=== PATIENT | male | born 1995 | race Caucasian/White ===

== ENCOUNTER 2023-01-17 09:13 | Inpatient (IN) | payer OTHER, MEDICAID, SELFPAY ==
[2023-01-17] VITALS (10 sets, daily range): BP systolic 125–142; BP diastolic 66–97; PULSE 71–110; RESP 14–23; TEMP 36.4–37.8; O2SAT 97–100; BMI 25.7
--- NOTE | ~2023-01-17 | MR_ITS ---
MRI of the abdomen: Clinical indication: Left renal lesion, pancreatitis. Technique: Coronal SSFSE ARC, WATER:coronal LAVA-FLEX, Coronal 2D FIESTA FatSat, Axial SSFSE BH ARC, Axial 3D DualEcho BH, Axial SSFSE-IR, Axial DWI b=500, Axial 2D FIESTA FatSat, pre and dynamic postco ntrast Axial LAVA ARC, postcontrast Coronal In and Opposed phase LAVA FLEX. Following intravenous adm inistration of 19 cc MultiHance gadolinium, T1-weighted fat-sat imaging was performed in the axial an d coronal planes. COMPARISON: CT scan dated 01/17/2023 Findings: Gallbladder is unremarkable. The common bile duct is normal in course and caliber. No filli ng defects are seen within the CBD. No evidence of intrahepatic biliary ductal dilatation. The pancre atic duct is normal in size. Liver, spleen, adrenals, kidneys appear normal. There is peripancreatic fluid and edematous change, c onsistent with acute pancreatitis. The aorta and the paraaortic regions appear normal. Impression: Acute pancreatitis. No evidence for pancreatic necrosis or pseudocyst. No definite MR correlate seen for the subtle hypoattenuation at the upper pole the left kidney seen o n CT. Reviewed, dictated and finalized at location . Impression: Acute pancreatitis. No evidence for pancreatic necrosis or pseudocyst. No definite MR correlate seen for the subtle hypoattenuation at the upper pole the left kidney seen on CT.
--- NOTE | ~2023-01-17 | CT_ITS ---
EXAMINATION: CT abdomen pelvis w con DATE: 01/17/2023 12:18 INDICATION: Abdominal pain TECHNIQUE: Computed tomography (CT) of the abdomen and pelvis was performed with 100 mL Omnipaque-350 intravenous contrast. Automated exposure control and iterative reconstruction technique were employe d. The dose-length product was 385.01 mGy-cm. COMPARISON: None FINDINGS: Lung bases are clear. Heart size is normal. No pericardial or pleural effusion. Diffuse hepatic steat osis with focal sparing along the gallbladder fossa. Gallbladder, spleen, bilateral adrenal glands an d right kidney are normal. 3-4 mm nonobstructing stone in the left kidney. Indeterminate approximatel y 8 mm region of slightly lower attenuation in the surrounding enhancing renal parenchyma at the uppe r pole of the left kidney. Inflammatory stranding and small amount of nonloculated peripancreatic flu id about the pancreas most prominent at the tail consistent with acute interstitial pancreatitis. Yudy ogeneous pancreatic parenchymal enhancement with no evident necrosis. Adjacent vasculature is unremar kable specifically with no arterial aneurysms or thrombosis in the portal venous system. Bowels inclu ding the appendix are normal. Bladder is normal. No free intraperitoneal gas or fluid. No pathologica lly enlarged abdominal or pelvic lymphadenopathy. Bones are unremarkable. IMPRESSION: 1. Radiographically uncomplicated acute interstitial pancreatitis. 2. Nonobstructing 3 to 4 mm left renal stone. 3. Indeterminate 8 mm lesion at the upper pole the left kidney with differential including focal infe ction/pyelonephritis, infarct, complex proteinaceous/hemorrhagic cyst or solid neoplasm. Would recomm end further evaluation with pre and postcontrast MRI. 4. Diffuse hepatic steatosis. Reviewed, dictated and finalized at location A. IMPRESSION: 1. Radiographically uncomplicated acute interstitial pancreatitis. 2. Nonobstructing 3 to 4 mm left renal stone. 3. Indeterminate 8 mm lesion at the upper pole the left kidney with differentia l including focal infection/pyelonephritis, infarct, complex proteinaceous/hemo rrhagic cyst or solid neoplasm. Would recommend further evaluation with pre and postcontrast MRI. 4. Diffuse hepatic steatosis.
[2023-01-17 10:14] LABS: Basophils Absolute Auto 0.1 K/mm3 (0.0-0.1); Basophils Percent Auto 0.7 % (0.2-1.2); Eosinophils Percent Auto 0.4 % (0-4.4); Hematocrit 41.9 % (42.0-52.0); Hemoglobin 14.6 g/dL (14.0-18.0); Immature Granulocyte Absolute 0.02 K/mm3 (0.00-0.031); Immature Granulocyte Percent A 0.3 % (0-0.5); Lymphocytes Absolute Auto 1.14 K/mm3 (0.9-3.2); Lymphocytes Percent Auto 15.1 % (18.3-44.2); Mean Corpuscular HGB Conc 34.8 g/dl (32-36); Mean Corpuscular Hemoglobin 33.6 pg (26-34); Mean Corpuscular Volume 96.5 fl (80-100); Mean Platelet Volume 9.3 fl (7.4-10.4); Monocytes Absolute Auto 0.5 K/mm3 (0.1-0.6); Monocytes Percent Auto 6.7 % (2.6-8.5); Neutrophils Absolute Auto 5.8 K/mm3 (1.3-6.7); Neutrophils Percent Auto 76.8 % (45.5-73.1); Platelet Count Result 183 k/mm3 (150-375); Red Blood Count 4.34 M/mm3 (4.6-6.20); Red Cell Distribution Width 13.1 % (11.5-14.5); White Blood Count 7.6 K/mm3 (4.5-10.0)
[2023-01-17 10:26] LABS: Lactic Acid Reflex 1.2 mmol/L (0.7-2.0)
[2023-01-17 10:46] LABS: Appearance Urine Turbid (Clear); Bacteria Urine None Seen /hpf; Bilirubin Urine 1+ (Negative); Blood Urine 1+ (Negative); Color Urine Dark Yellow (Yellow); Glucose Urine UA Negative (Negative); Ketones Urine Negative (Negative); Leukocyte Esterase Ur Negative LEU/UL (Negative); Nitrate Urine Negative (Negative); Non Pathogenic Casts 0-2; Protein Urine 1+ mg/dL (Negative); Prothrombin Time 13.6 Seconds (11.1-14.7); RBC Urine 0-2 /hpf (0-2); Specific Grav Ur 1.017 (1.001-1.035); Squamous Epithelial Cell Urine None seen /hpf (Few); WBC Urine 0-5 /hpf; pH Urine 5.5 (5.0-9.0)
[2023-01-17 10:47] LABS: Partial Thromboplastin Time 30.3 SECONDS (22.3-36.8)
[2023-01-17 10:50] LABS: Add Urine Microscopic? YES
[2023-01-17 10:57] LABS: Alanine Aminotransferase 128 U/L (6-50); Alkaline Phosphatase 128 U/L (38-126); Anion Gap 9 mmol/L (8-16); Aspartate Amino Transferase 133 U/L (17-59); Bilirubin,Total 1.9 mg/dL (0.2-1.3); Blood Urea Nitrogen 11 mg/dL (9-20); Calcium 8.5 mg/dL (8.4-10.2); Carbon Dioxide 21 mmol/L (22-30); Chloride 102 mmol/L (98-107); Estimated CRCL calculation 110 ml/min; Estimated Glomerular Filt Rate > 60; Glucose 105 mg/dL (65-110); Lipase 1823 U/L (23-300); Potassium 3.4 mmol/L (3.4-5.0); Sodium 132 mmol/L (137-145)
[2023-01-17] MEDS: ONDANSETRON INJ 4 MG/2 ML VIAL IV PUSH (12:18)
[2023-01-17] MEDS: SODIUM CHLORIDE 0.9% IV 1,000 ML 999 ML IV CONT (12:18)
[2023-01-17] MEDS: HYDROmorphone HCL INJ (*CRX) 1 MG/ML SYR 0.5 MG IV PUSH ×2 (12:19→17:52)
--- NOTE | 2023-01-17 12:20 | ED.ABDPAIN ---
HPI - Abdominal Pain General Chief Complaint: Abdominal Pain Stated Complaint: abdominal pain and vomiting blood Time Seen by Provider: 01/17/23 09:25 History of Present Illness HPI narrative: 27-year-old male presented to the emergency department for evaluation of lower abdominal pain. Patient states he does have an issue with alcoholism and has been drinking daily for the past 2 weeks. Patient states that he was having some issues with constipation but did do an enema last night and began passing stool. Patient does describe diffuse abdominal pain. Related Data Home Medications Medication Instructions Recorded Confirmed losartan 50 mg tablet 50 mg DAILY 01/17/23 01/17/23 omeprazole 40 mg capsule,delayed 40 mg DAILY 01/17/23 01/17/23 release Allergies Allergy/AdvReac Type Severity Reaction Status Date / Time morphine Allergy Hives Verified 01/17/23 09:15 Review of Systems Review of Systems: All systems reviewed & are unremarkable except as noted in HPI and below PMFSH Family History Family History (Updated 01/17/23 @ 14:56 by Kaylah Mckeon RN) Mother Diabetes mellitus Addiction Father Diabetes mellitus Addiction Social History Social History Years smoked: 5 Smoking status: Current every day smoker Tobacco type: e-cigarettes/vaping Alcohol intake: current Drinks per week: 28 Substance use: current Substance use type: marijuana Lack of Transportation: No Lack of Food: Never True Current Housing: I Have Housing Concerned About Future Housing: No Difficulty Paying Gas/Electric Bills: No Difficulty Paying for Meds: No Currently Unemployed: No Education: Don't Know Difficulty w/ Childcare or Family Care: No Spiritual care concerns: No Exam Narrative: APPEARANCE: Well appearing, no pain, no distress, well-nourished. HEAD: normocephalic, atraumatic. EYES: PERRLA/EOMI, conjunctivae clear. NOSE: Normal no drainage EARS:TMS clear with good light reflex. THROAT: Pharynx clear, no exudate. NECK: Supple. No adenopathy, no masses. RESPIRATORY: Airway patent, respirations nonlabored. Clear to auscultation bilaterally, no rales, rhonchi, wheezing. CARDIOVASCULAR: Regular rate and rhythm without murmurs rubs or gallops. ABDOMINAL: Lower abdominal tenderness to palpation MUSCULOSKELETAL: Moves all extremities. Strength/ROM intact, No edema, No calf tenderness. NEURO: Alert. Cranial nerves II through XII intact. Grossly intact SKIN: Warm, dry. Normal Color Course Course Emergency Course: 27-year-old male presented the ED for evaluation of abdominal pain. Patient was afebrile with no leukocytosis and a stable hemoglobin of 14.6. Patient did have an elevated lipase of 1823. CT scan showed no evidence of pancreatitis. Patient was updated on the results of his work-up and plan for admission. Case was discussed with the hospitalist and patient was accepted for admission. Patient was stable at time of admission Vital Signs Vital signs: Vital Signs Temperature 97.5 F L 01/17/23 09:17 Pulse Rate 110 H 01/17/23 09:17 Respiratory Rate 14 01/17/23 09:17 Blood Pressure 142/92 H 01/17/23 09:17 Pulse Oximetry 100 01/17/23 09:17 Oxygen Delivery Room Air 01/17/23 09:17 Temperature 97.5 F L 01/17/23 09:17 Pulse Rate 71 01/17/23 14:20 Respiratory Rate 18 01/17/23 14:20 Blood Pressure 130/97 H 01/17/23 14:20 Pulse Oximetry 99 01/17/23 14:20 Oxygen Delivery Room Air 01/17/23 09:17 MDM - Abdominal Pain Differential Diagnosis Differential diagnosis: Likely abdominal pain Lab Data Attestation: I reviewed the patient's lab results. 01/17/23 09:55 01/17/23 10:32 Labs: Lab Results 01/17/23 01/17/23 01/17/23 Range/Units 09:55 09:56 10:32 WBC 7.6 (4.5-10.0) K/mm3 RBC 4.34 L (4.6-6.20) M/mm3 Hgb 14.6 (14.0-18.0) g/dL Hct 41.9 L (42.0-52.0) % MCV 96.5 (80-100) fl [facility]
[2023-01-17] MEDS: SODIUM CHLORIDE 0.9% IV 1,000 ML 125 ML IV CONT (13:16)
--- NOTE | 2023-01-17 14:54 | ADMGEN ---
This patient, Nate Holliday, was admitted to [facility] Surg Room 302-01. Patient/family oriented to hospital policies and general routines including ID bracelet, bed and alarms, visiting hours, pain management, procedures, bathroom and other care routines, personal items, smoking policy, room service/diet, and visiting hours. Information on how to activate the Rapid Response Team has been discussed. Patient/Family are encouraged to report perceived risks to care and to ask questions if they do not understand what they are told or what they should do.
--- NOTE | 2023-01-17 15:42 | PM.IMHP ---
H&P: HPI History of Present Illness Date/Time: 01/17/23 15:42 Chief Complaint: Abdominal pain Narrative: This is a 27-year-old male patient who has a history of alcoholism. The patient came in with abdominal pain and vomiting blood today. The patient stated that he drinks approximately 4 shots of liquor a day and 2 tall boys as well. The patient stated that he has drink this for proximally 2 weeks straight. The patient stated that he had gone through. Time approximately 2 years where he had not drink any alcohol. However he is currently on a binge. The patient stated that he felt like he was constipated and distended. The patient gave himself an enema and he started passing some stool. He still is not having any relief. The patient stated that his pain level was about a 4-5. He has epigastric discomfort. The patient did not take anything else other than an enema for his discomfort. Abdominal pelvis CT was read as the following. Radiographically uncomplicated acute interstitial pancreatitis. 2. Nonobstructing 3 to 4 mm left renal stone. 3. Indeterminate 8 mm lesion at the upper pole the left kidney with differential including focal infection/pyelonephritis, infarct, complex proteinaceous/hemorrhagic cyst or solid neoplasm. Would recommend further evaluation with pre and postcontrast MRI. 4. Diffuse hepatic steatosis His sodium levels 132. Total bilirubin 1.9, AST 133, ALT 128, alkaline phosphatase 128, and lipase 1823. His urine is turbid with 1+ blood and 1+ urine bilirubin. The patient stated that he last drank yesterday. He did not take any alcohol today but he did drink his normal amount yesterday. The patient was given IV fluids, Zofran and Dilaudid in the emergency room. The patient is being admitted to inpatient status on the date of service of 01/17/2023. Review of Systems Review of Systems: All systems reviewed & are unremarkable except as noted in HPI and below Constitutional: Constitutional: Reports as per HPI and Reports no additional constitutional complaints Eyes: Eyes: Reports as per HPI and Reports no additional eye complaints ENT: Reports system reviewed and no additional complaints, except as documented and Reports Normal hearing present Cardiovascular: Cardiovascular: Reports no additional cardiovascular complaints Respiratory: Respiratory: Reports no additional respiratory complaints and Reports no additional respiratory complaints Gastrointestinal: Gastrointestinal: Reports as per HPI and Reports no additional gastrointestinal complaints Musculoskeletal: Musculoskeletal: Reports no additional musculoskeletal complaints Integumentary/Breasts: Skin/Breast: Reports system reviewed and no additional complaints, except as docu and Reports as per HPI Neurologic: Reports system reviewed and no additional complaints, except as documented, Reports as per HPI and Reports Normal hearing present Psychiatric: Psychiatric: Reports no additional psychiatric complaints and Reports as per HPI Endocrine: Endocrine: Reports no additional endocrine complaints Hematologic/Lymphatic: Hematologic/Lymphatic: Reports no additional hematologic/lymphatic complaints Allergic/Immunologic: Allergic/Immunologic: Reports no additional allergic/immunologic complaints PMFSH Past Medical History Medical History (Updated 01/17/23 @ 20:26 by Mely Ramirez NP) Alcoholism Chronic GERD Hypertension Kidney stone Surgical History Surgical History (Updated 01/17/23 @ 20:26 by Mely Ramirez NP) History of kidney surgery Family History Family History Mother Diabetes mellitus Addiction Father Diabetes mellitus Addiction Social History Social History (Updated 01/17/23 @ 20:27 by Mely Ramirez NP) Social History: The patient states that he does vape. The patient stated that he drinks 4 shots of whiskey a day and 2 tall boys. The patient works as a diesel m
[2023-01-17] MEDS: FAMOTIDINE 20 MG/2 ML VIAL IV PUSH (21:16)
[2023-01-18 00:11] LABS: Glucose Point of Care 95 mg/dl (65-105)
[2023-01-18] MEDS: SODIUM CHLORIDE 0.9% IV 1,000 ML 125 ML IV CONT (05:05)
[2023-01-18 05:10] LABS: Basophils Percent Auto 0.6 % (0.2-1.2); Eosinophils Absolute Auto 0.1 K/mm3 (0-0.3); Eosinophils Percent Auto 2.2 % (0-4.4); Hematocrit 37.1 % (42.0-52.0); Hemoglobin 12.3 g/dL (14.0-18.0); Immature Granulocyte Absolute 0.02 K/mm3 (0.00-0.031); Immature Granulocyte Percent A 0.3 % (0-0.5); Lymphocytes Absolute Auto 1.23 K/mm3 (0.9-3.2); Lymphocytes Percent Auto 19.6 % (18.3-44.2); Mean Corpuscular HGB Conc 33.2 g/dl (32-36); Mean Corpuscular Hemoglobin 33.2 pg (26-34); Mean Corpuscular Volume 100.3 fl (80-100); Monocytes Absolute Auto 0.4 K/mm3 (0.1-0.6); Monocytes Percent Auto 6.2 % (2.6-8.5); Neutrophils Absolute Auto 4.5 K/mm3 (1.3-6.7); Neutrophils Percent Auto 71.1 % (45.5-73.1); Platelet Count Result 150 k/mm3 (150-375); Red Cell Distribution Width 13.2 % (11.5-14.5); White Blood Count 6.3 K/mm3 (4.5-10.0)
[2023-01-18 05:20] LABS: Lactic Acid Reflex 0.5 mmol/L (0.7-2.0)
[2023-01-18 05:23] LABS: Alanine Aminotransferase 89 U/L (6-50); Albumin Level 3.7 g/dL (3.5-5.1); Alkaline Phosphatase 98 U/L (38-126); Anion Gap 9 mmol/L (8-16); Aspartate Amino Transferase 72 U/L (17-59); Bilirubin,Total 1.9 mg/dL (0.2-1.3); Blood Urea Nitrogen 9 mg/dL (9-20); Calcium 8.2 mg/dL (8.4-10.2); Carbon Dioxide 23 mmol/L (22-30); Chloride 105 mmol/L (98-107); Estimated CRCL calculation 99 ml/min; Estimated Glomerular Filt Rate > 60; Glucose 92 mg/dL (65-110); Lipase 651 U/L (23-300); Magnesium 2.4 mg/dL (1.6-2.3); Potassium 4.3 mmol/L (3.4-5.0); Sodium 137 mmol/L (137-145)
[2023-01-18] MEDS: HYDROmorphone HCL INJ (*CRX) 1 MG/ML SYR 0.5 MG IV PUSH (05:36)
[2023-01-18 06:00] VITALS: BP 138/77; PULSE 86; RESP 18; TEMP 36.8; O2SAT 99
[2023-01-18 06:58] LABS: Glucose Point of Care 55 mg/dl (65-105)
[2023-01-18 07:47] LABS: Glucose Point of Care 89 mg/dl (65-105)
--- NOTE | 2023-01-18 08:27 | PM.IMPN ---
Progress Note: A&P Assessment and Plan (1) Acute pancreatitis: Code(s): K85.90 - Acute pancreatitis without necrosis or infection, unspecified Status: Acute Assessment and Plan: -CT and MRI show acute pancreatits -lipase 1823--->651 -IV hydration at 150 ml per hour -advance diet to clears and if he tolerates clears will advance to full liquids tonight. -prn dilaudid for pain control (2) Alcoholism: Code(s): F10.20 - Alcohol dependence, uncomplicated Status: Acute Assessment and Plan: -received banana bag in ED, now with vitamin B1, multivitamin, and folic acid daily -Hypoglycemic this morning 55. Changed his IVF to D5NS at 150 ml per hour while NPO. -Q 6 Accu checks -CIWA -MRI shows hepatic steatosis. TBili 1.9, AST 72, ALT 89. Trending down appropriately. -Will [place] on alcohol cessation and care coordination consulted for assistance with outpatient referrals (3) Hypertension: Code(s): I10 - Essential (primary) hypertension Status: Acute Assessment and Plan: -Blood pressures reviewed and stable -P.r.n. hydralazine -Hold losartan for now while acutely ill (4) Chronic GERD: Code(s): K21.9 - Gastro-esophageal reflux disease without esophagitis Status: Acute Assessment and Plan: -on home omeprazole, holding while NPO -IV Pepcid Subjective Date/time seen: 01/18/23 08:27 Interval history: HPI was obtained from chart review: This is a 27-year-old male patient who has a history of alcoholism.? The patient came in with abdominal pain and vomiting blood today.? The patient stated that he drinks approximately 4 shots of liquor a day and 2 tall boys as well.? The patient stated that he has drink this for proximally 2 weeks straight.? The patient stated that he had gone through.? Time approximately 2 years where he had not drink any alcohol.? However he is currently on a binge.? The patient stated that he felt like he was constipated and distended.? The patient gave himself an enema and he started passing some stool.? He still is not having any relief.? The patient stated that his pain level was about a 4-5.? He has epigastric discomfort.? The patient did not take anything else other than an enema for his discomfort.?CT shows acute pancreatitis, diffuse hepatic steatosis, nonobstructing 3 to 4 mm left renal stone, and indeterminate 8 mm lesion at the upper pole the left kidney. MRI was recommended for further review and report states no definite MR correlate seen for the subtle hypoattenuation at the left upper pole of left kidney as seen on CT. 01/18: Patient is seen today appears to be comfortable. No acute events overnight. He says that his pain is much improved since when he came in initially. He has been tolerating intermittent ice chips and sips of water. Initially the water was giving him some pain but today he is able to tolerate it. Will advance to clear liquid diet for lunch and if he does well without pain we can advance him to full liquids for tonight. When he presented to the ER he was said he thought he was constipated at home so he gave himself an enema. But he thinks now that discomfort which is related to his pancreatitis. He is having some tremors related to alcohol withdrawal for which he is receiving Librium p.r.n.. He says that he is withdrawn before but denies seizures. I counseled him on stopping drinking as this is causing his recurrent pancreatitis and he now has fatty liver changes noted on the CT. He says that he has been successful stopping drinking before but then after COVID he fell back into old habits. I spoke with him about why he drinks and he says that it is a coping mechanism to deal with anxiety related to his bipolar 2 disorder. He is seeing a counselor for this in the past and was on medications but has been off the medications for the last year. He is encouraged to reestablish care with his therapist. Patient has no
[2023-01-18] MEDS: DEXTROSE 5%/0.9% SOD CHL 1,000 ML 150 ML IV CONT (09:27)
[2023-01-18] MEDS: THERAPEUTIC MULTIVITAMINS/MINERALS TAB (*BKC) 1 TABLET PO (09:27)
[2023-01-18] MEDS: FOLIC ACID 1 MG/0.2 ML INJ IV PUSH (09:28)
[2023-01-18] MEDS: THIAMINE HCL 200 MG/2 ML VIAL 100 MG IV PUSH (09:28)
[2023-01-18] MEDS: FAMOTIDINE 20 MG/2 ML VIAL IV PUSH ×2 (09:28→21:01)
[2023-01-18] MEDS: chlordiazePOXIDE (*CRX) 25 MG CAPSULE PO (09:31)
[2023-01-18 12:00] VITALS: PULSE 84
[2023-01-18 12:41] LABS: Glucose Point of Care 106 mg/dl (65-105)
[2023-01-18 13:47] VITALS: BP 139/90; PULSE 79; RESP 16; TEMP 36.6; O2SAT 100
[2023-01-18 17:59] LABS: Glucose Point of Care 138 mg/dl (65-105)
[2023-01-18 20:59] VITALS: BP 131/89; PULSE 81; RESP 13; TEMP 36.9; O2SAT 100
[2023-01-18] MEDS: LORazepam INJ (*CRX) 2 MG/ML VIAL IV PUSH (21:00)
[2023-01-18 23:01] LABS: Glucose Point of Care 110 mg/dl (65-105)
[2023-01-19 05:26] LABS: Glucose Point of Care 105 mg/dl (65-105)
[2023-01-19 05:27] VITALS: BP 128/78; PULSE 68; RESP 12; TEMP 36.5; O2SAT 99
[2023-01-19 06:10] LABS: Eosinophils Absolute Auto 0.1 K/mm3 (0-0.3); Hematocrit 41.3 % (42.0-52.0); Hemoglobin 13.6 g/dL (14.0-18.0); Immature Granulocyte Absolute 0.01 K/mm3 (0.00-0.031); Immature Granulocyte Percent A 0.2 % (0-0.5); Lymphocytes Absolute Auto 0.99 K/mm3 (0.9-3.2); Lymphocytes Percent Auto 24.6 % (18.3-44.2); Mean Corpuscular HGB Conc 32.9 g/dl (32-36); Mean Corpuscular Hemoglobin 33.1 pg (26-34); Mean Corpuscular Volume 100.5 fl (80-100); Mean Platelet Volume 9.3 fl (7.4-10.4); Monocytes Absolute Auto 0.4 K/mm3 (0.1-0.6); Neutrophils Absolute Auto 2.5 K/mm3 (1.3-6.7); Neutrophils Percent Auto 62.2 % (45.5-73.1); Platelet Count Result 166 k/mm3 (150-375); Red Blood Count 4.11 M/mm3 (4.6-6.20)
[2023-01-19 06:20] LABS: INR 1.1; Prothrombin Time 14.2 Seconds (11.1-14.7)
[2023-01-19 06:21] LABS: Partial Thromboplastin Time 37.7 SECONDS (22.3-36.8)
[2023-01-19] MEDS: chlordiazePOXIDE (*CRX) 25 MG CAPSULE PO (06:23)
[2023-01-19 06:25] LABS: Alanine Aminotransferase 93 U/L (6-50); Albumin Level 4.2 g/dL (3.5-5.1); Alkaline Phosphatase 114 U/L (38-126); Anion Gap 5 mmol/L (8-16); Aspartate Amino Transferase 79 U/L (17-59); Bilirubin,Total 1.5 mg/dL (0.2-1.3); Blood Urea Nitrogen 6 mg/dL (9-20); Calcium 9.4 mg/dL (8.4-10.2); Carbon Dioxide 29 mmol/L (22-30); Chloride 102 mmol/L (98-107); Estimated CRCL calculation 91 ml/min; Estimated Glomerular Filt Rate > 60; Glucose 103 mg/dL (65-110); Magnesium 2.6 mg/dL (1.6-2.3); Potassium 4.2 mmol/L (3.4-5.0); Sodium 136 mmol/L (137-145)
--- NOTE | 2023-01-19 08:02 | PM.DS ---
DS: Admitting Diagnosis Discharge Date SundayJanuary 19 Admitting Diagnosis Acute pancreatitis DS: Discharge Diagnosis Discharge Diagnosis (1) Acute pancreatitis: Code(s): K85.90 - Acute pancreatitis without necrosis or infection, unspecified Status: Acute Assessment and Plan: -CT and MRI show acute pancreatits -lipase 1823--->651 -pain improved yesterday so I stopped his IV fluids and advance him to clear liquids at lunch. He was advanced to full liquid diet last night. Will trial general diet this morning if he does have pain will discharge him today. (2) Alcoholism: Code(s): F10.20 - Alcohol dependence, uncomplicated Status: Acute Assessment and Plan: -received banana bag in ED, now with vitamin B1, multivitamin, and folic acid daily -Hypoglycemic this morning 55. Changed his IVF to D5NS at 150 ml per hour while NPO. -Q 6 Accu checks -CIWA -MRI shows hepatic steatosis. TBili 1.9, AST 72, ALT 89. Trending down appropriately. -Will [place] on alcohol cessation and care coordination consulted for assistance with outpatient referrals (3) Hypertension: Code(s): I10 - Essential (primary) hypertension Status: Acute Assessment and Plan: -Blood pressures reviewed and stable -P.r.n. hydralazine -Hold losartan for now while acutely ill (4) Chronic GERD: Code(s): K21.9 - Gastro-esophageal reflux disease without esophagitis Status: Acute Assessment and Plan: -on home omeprazole, holding while NPO -IV Pepcid DS: Summary Hospital Course Reason for hospitalization: Acute pancreatitis Hospital Course: This is a 27-year-old male patient who has a history of alcoholism.? The patient came in with abdominal pain and vomiting blood today.? The patient stated that he drinks approximately 4 shots of liquor a day and 2 tall boys as well.? The patient stated that he has drink this for proximally 2 weeks straight.? The patient stated that he had gone through.? Time approximately 2 years where he had not drink any alcohol.? However he is currently on a binge.? The patient stated that he felt like he was constipated and distended.? The patient gave himself an enema and he started passing some stool.? He still is not having any relief.? The patient stated that his pain level was about a 4-5.? He has epigastric discomfort.? The patient did not take anything else other than an enema for his discomfort.?CT shows acute pancreatitis, diffuse hepatic steatosis, nonobstructing 3 to 4 mm left renal stone, and indeterminate 8 mm lesion at the upper pole the left kidney. MRI was recommended for further review and report states no definite MR correlate seen for the subtle hypoattenuation at the left upper pole of left kidney as seen on CT. 01/18:? Patient is seen today appears to be comfortable.? No acute events overnight.? He says that his pain is much improved since when he came in initially.? He has been tolerating intermittent ice chips and sips of water.? Initially the water was giving him some pain but today he is able to tolerate it.? Will advance to clear liquid diet for lunch and if he does well without pain we can advance him to full liquids for tonight.? When he presented to the ER he was said he thought he was constipated at home so he gave himself an enema.? But he thinks now that discomfort which is related to his pancreatitis.? He is having some tremors related to alcohol withdrawal for which he is receiving Librium p.r.n..? He says that he is withdrawn before but denies seizures.? I counseled him on stopping drinking as this is causing his recurrent pancreatitis and he now has fatty liver changes noted on the CT.? He says that he has been successful stopping drinking before but then after COVID he fell back into old habits.? I spoke with him about why he drinks and he says that it is a coping mechanism to deal with anxiety related to his bipolar 2 disorder.? He is seeing a counselor for t
[2023-01-19 08:16] VITALS: O2SAT 98
[2023-01-19 08:28] LABS: Lipase 511 U/L (23-300)
[2023-01-19] MEDS: THERAPEUTIC MULTIVITAMINS/MINERALS TAB (*BKC) 1 TABLET PO (08:35)
[2023-01-19] MEDS: FAMOTIDINE 20 MG/2 ML VIAL IV PUSH (08:35)
[2023-01-19] MEDS: THIAMINE HCL 200 MG/2 ML VIAL 100 MG IV PUSH (08:36)
[2023-01-19] MEDS: FOLIC ACID 1 MG/0.2 ML INJ IV PUSH (08:38)
[2023-01-19] MEDS: LORazepam INJ (*CRX) 2 MG/ML VIAL IV PUSH (08:42)
[2023-01-19 11:10] LABS: Glucose Point of Care 113 mg/dl (65-105)
--- NOTE | 2023-01-19 14:51 | PCCCNOTE ---
On 01/19/23, the student, [Sheryl Cohen ], provided care and completed [facility] on this patient. I have reviewed the student's documentation and agree with the findings.
== END 2023-01-19 13:35 | disposition home or self-care (01) | DRG 439 ==
LOC: ANHED 12:56 → ANH3MEDSUR 14:02
PROVIDERS: Nurse Practitioner; Admitting Provider Student in an Organized Health Care Education/Training Program; Emergency Provider Emergency Medicine; PCP Internal Medicine; Visit Provider Nurse Practitioner Acute Care
DX: K85.20 Alcohol induced acute pancreatitis without necrosis or infection (principal); F10.239 Alcohol dependence with withdrawal, unspecified; F31.81 Bipolar II disorder; G25.2 Other specified forms of tremor; K21.9 Gastro-esophageal reflux disease without esophagitis; I10 Essential (primary) hypertension; F41.9 Anxiety disorder, unspecified; F17.290 Nicotine dependence, other tobacco product, uncomplicated; Z87.442 Personal history of urinary calculi
CPT/HCPCS: 36415; 74177; 74183; 80053; 81001; 82948; 83605; 83690; 83735; 84100; 84443; 85025; 85610; 85730; 96361; 96374; 96375; 99285; A9270; A9577; J1170; J2060; J2405; J3411; J3475; J7030; J7042; Q9967